=== PATIENT | female | born 1990 | race Caucasian/White ===

== ENCOUNTER 2022-08-10 23:22 | Emergency (ER) | payer MEDICAID, SELFPAY ==
[2022-08-10 23:32] VITALS: BP 174/106; PULSE 120; O2SAT 98
[2022-08-10 23:36] VITALS: BP 174/106; PULSE 118; RESP 18; TEMP 36.9; O2SAT 98; BMI 44.8
[2022-08-10 23:45] LABS: Microscopic, Urine URINE MICROSCOPIC (MICROSCOPIC)
[2022-08-10 23:49] LABS: Bilirubin,Urine Negative (Negative); Blood, Urine 3+ (Negative); Color,Urine YELLOW (Yellow); Glucose,Urine (UA) Negative (Negative); Ketones,Urine Negative (Negative); Leukocyte Esterase,Urine 2+ (Negative); Nitrate,Urine POSITIVE (Negative); Protein,Urine Negative (Negative); Specific Gravity, Urine 1.025 (1.005-1.030); Urobilinogen,Urine 0.2 EU/dl (0.2)
[2022-08-10 23:50] LABS: Appearance,Urine Slightly Cloudy (Clear)
--- NOTE | 2022-08-10 23:59 | HMH.EDABDPAI ---
Discharge Plan Disposition Patient Disposition: Home, Self-Care Prescriptions Prescriptions: New levofloxacin 500 mg tablet 500 mg PO DAILY Qty: 7 0RF No Action citalopram 20 mg tablet 20 mg PO DAILY omeprazole 20 mg capsule,delayed release(DR/EC) 20 mg PO DAILY albuterol sulfate [Ventolin HFA] 90 mcg/actuation HFA aerosol inhaler 1 puff INHALATION Q4-6H PRN (Reason: asthma) lisinopril 40 mg tablet 40 mg PO DAILY Descovy 200-25 mg tablet 1 tab PO DAILY Pifeltro 100 mg tablet 100 mg PO DAILY Referrals Follow up/Referrals: Lisa Root APRN [Primary Care Provider] - See instructions Clinical Impressions Clinical Impression: Pelvic pain, UTI (urinary tract infection) Instructions Patient Instructions: DI for Pelvic Pain, DI for Urinary Tract Infection (UTI) Discharge ED Provider: Vincent Jackson Abdominal Pain HPI General Chief Complaint: Abdominal Pain Stated Complaint: Abd pain with spotting,denies Time Seen by Provider: 08/10/22 23:59 Mode of Arrival: Ambulatory Source of Information: Patient and Medical Record Limitations: No Limitations Description of Symptoms (Recalled from ER Triage Doc. by RN): Pt c/o lower abdominal pain that radiates up through her belly button and into her lower back. Patient states that she was treated for trichimoniasis one month ago and finished her antibiotics three weeks ago. Patient states that she has a history of ovarian cysts and feels like this pain is similar to what she has experienced in the past with an ovarian cyst rupture. Patient also c/o nausea. History of Present Illness HPI narrative: lower abd pain over the last few days with some spotting - no fever and has hx of ovarian cysts complaint: abdominal pain Onset (ago): day(s) Consistency: intermittent Severity: moderate Radiation: suprapubic Associated symptoms: nausea Related Data Home Medications Medication Instructions Recorded Confirmed albuterol sulfate 90 mcg/actuation 1 puff inhalation Q4-6H PRN asthma 08/10/22 08/11/22 aerosol inhaler (Ventolin HFA) citalopram 20 mg tablet 20 mg PO DAILY Anxiety 08/10/22 08/11/22 doravirine 100 mg tablet (Pifeltro) 100 mg PO DAILY hiv 08/10/22 08/11/22 emtricitabine 200 mg-tenofovir 1 tab PO DAILY hiv 08/10/22 08/11/22 alafenamide fumarate 25 mg tablet (Descovy) lisinopril 40 mg tablet 40 mg PO DAILY htn 08/10/22 08/11/22 omeprazole 20 mg capsule,delayed 20 mg PO DAILY GERD 08/10/22 08/11/22 release Previous Rx's Medication Instructions Recorded levofloxacin 500 mg tablet 500 mg PO DAILY #7 tabs 08/11/22 Allergies Allergy/AdvReac Type Severity Reaction Status Date / Time oseltamivir [From Tamiflu] Allergy Mild Hives Verified 08/10/22 23:49 cefdinir AdvReac Rash Verified 08/10/22 23:49 [facility] Disclaimer: The information contained in this section may have been updated after the patient was seen, as this information can be updated by other users. Social History Smoking Status: Current every day smoker alcohol intake: never current occupational status: employed Travel in the last 8 weeks: None ROS Obtained: Yes All systems reviewed & no additional complaints except as documented Physical Exam General General appearance: alert Head Head exam: normocephalic Eye Eye exam: Present PERRL and EOMI ENT ENT exam: Present mucous membranes moist Neck Neck exam: Present trachea midline Respiratory Respiratory exam: Absent respiratory distress Cardiovascular Cardiovascular exam: Present regular rate Abdominal Exam Abdominal exam: Present soft and tenderness; Absent guarding Abdominal tenderness: Present suprapubic and moderate Extremities Exam Extremities exam: Present full ROM Back Exam Back exam: Absent CVA tenderness (L) Neurological Exam Neurological exam: Present alert, oriented X3 and CN II-XII intact; Absent motor sensory deficit [facility]iatric [facility]
--- NOTE | 2022-08-11 | CT_ITS ---
PROCEDURE INFORMATION: Exam: CT Abdomen And Pelvis With Contrast Exam date and time: 08/11/2022 12:23 AM Age: 32 years old Clinical indication: Abdominal pain; Localized; Prior surgery; Surgery type: C sections; Patient HX: C/O lower abd pain x3 days TECHNIQUE: Imaging protocol: Computed tomography of the abdomen and pelvis with contrast. Radiation optimization: All CT scans at this facility use at least one of these dose optimization techniques: automated exposure control; mA and/or kV adjustment per patient size (includes targeted exams where dose is matched to clinical indication); or iterative reconstruction. Contrast material: ISOVUE; Contrast volume: 75 ml; Contrast route: IV; Other protocol: This patient has received 0 known CTs and 0 known cardiac nuclear medicine studies in the 12 months prior to the current study. COMPARISON: CT ABDOMEN PELVIS WO CON 04/22/2019 4:56 PM FINDINGS: Lungs: No acute finding. Liver: Normal. No mass. Gallbladder and bile ducts: The gallbladder is contracted. There is no biliary ductal dilation. Pancreas: Normal. No ductal dilation. Spleen: Normal. No splenomegaly. Adrenal glands: Normal. No mass. Kidneys and ureters: Normal. No hydronephrosis. Stomach and bowel: Unremarkable. No obstruction. No mucosal thickening. Appendix: No evidence of appendicitis. Intraperitoneal space: Unremarkable. No free air. No significant fluid collection. Vasculature: Unremarkable. No abdominal aortic aneurysm. Lymph nodes: Unremarkable. No enlarged lymph nodes. Urinary bladder: Unremarkable as visualized. Reproductive: There is a collapsing small left ovarian cyst. Bones/joints: Unremarkable. No acute fracture. Soft tissues: Unremarkable. IMPRESSION: There is no acute process within the abdomen pelvis.
[2022-08-11 00:02] LABS: Urine Pregnancy, HCG Qual. Negative (Negative)
[2022-08-11 00:03] LABS: Bacteria,Urine 4+ /lpf; Yeast,Urine Occasional /lpf
[2022-08-11 00:09] LABS: Basophils # 0.1 K/mm3 (0-0.2); Basophils % 0.9 % (0.1-2.0); Eosinophils # 0.6 K/mm3 (0.0-0.4); Eosinophils % 5.3 % (0.1-12.0); Hemoglobin 15.1 g/dL (12.2-16.2); Lymphocytes # 2.5 K/mm3 (0.7-4.5); Lymphocytes % 21.4 % (10-50); Mean Corpuscular Hemoglobin 31.6 pg (27.0-31.2); Mean Corpuscular Volume 90.3 fl (81-99); Mean Platelet Volume 7.8 fl (7.4-10.4); Monocytes # 0.5 K/mm3 (0.1-1.0); Monocytes % 3.8 % (1.7-9.3); Neutrophils # 8.1 K/mm3 (1.8-7.8); Neutrophils % 68.6 % (37.0-80.0); Platelet Count 303 K/mm3 (142-424); Red Blood Count 4.77 M/mm3 (4.20-5.40); Red Cell Distribution Width 13.2 % (11.5-17.5); White Blood Count 11.9 K/mm3 (4.8-10.8)
[2022-08-11 00:15] LABS: Chloride 107 mmol/L (98-107); Sodium 138 mmol/L (136-145)
[2022-08-11 00:18] LABS: Alanine Aminotransferase 22 U/L (12-78); Albumin Level 4.3 g/dl (3.5-5.0); Albumin/Globulin Ratio 1.3 (1.1-1.8); Alkaline Phosphatase 80 U/L (38-126); Aspartate Amino Transferase 28 U/L (14-36); Bilirubin,Total 0.3 mg/dl (0.2-1.3); Blood Urea Nitrogen 11 mg/dl (7-17); Carbon Dioxide 24 mmol/L (22.0-30.0); Creatinine Clearance Estimated 102 mL/min (50-200); Estimated Glomerular Filt Rate 83 ml/min (>60); GFR (African American) 101 ML/MIN (>60); Globulin 3.4 g/dL (1.3-3.2); Total Protein,Serum 7.7 g/dl (6.3-8.2)
[2022-08-11 00:19] LABS: Calcium 9.1 mg/dl (8.4-10.2); Glucose 122 mg/dl (74-100)
--- NOTE | 2022-08-11 00:20 | PC.NURSE ---
pt gone to rad
[2022-08-11 00:30] VITALS: BP 132/93; PULSE 84; O2SAT 100
[2022-08-11 01:00] VITALS: BP 149/77; PULSE 89; O2SAT 100
[2022-08-11 01:02] VITALS: BP 149/77; PULSE 82; O2SAT 100
[2022-08-11 01:31] VITALS: BP 150/75; PULSE 88; RESP 18; TEMP 36.6; O2SAT 99
== END 2022-08-11 01:54 | disposition home or self-care (01) ==
PROVIDERS: Emergency Provider Emergency Medicine; PCP Nurse Practitioner Family
DX: N39.0 Urinary tract infection, site not specified (principal); R10.2 Pelvic and perineal pain; F17.210 Nicotine dependence, cigarettes, uncomplicated
CPT/HCPCS: 74177; 80053; 81001; 81025; 85025; 87086; 87088; 87186; 96361; 96374; 96375; 99285; J0696; J2405; Q9967